=== PATIENT | female | born 1980 | race Two or more races ===

== ENCOUNTER 2019-07-31 20:41 | Emergency (ER) | payer MEDICAID, OTHER ==
[~2019-07-31] VITALS: Ht 154.9 cm; Wt 60.8 kg
[2019-07-31 20:59] VITALS: BP 141/87
== END 2019-07-31 21:30 | disposition left against medical advice (07) ==
LOC: ER 20:50
DX: R51 Headache (principal); Z53.21 Procedure and treatment not carried out due to patient leaving prior to being seen by health care provider